=== PATIENT | male | born 1990 | race Caucasian/White ===

== ENCOUNTER 2016-06-20 20:14 | Emergency (ER) | payer OTHER ==
[2016-06-20] MEDS ORDERED: CLONIDINE HCL 0.1 MG TABLET PO ONE (21:27)
--- NOTE | 2016-06-20 21:28 | ERNOTE ---
Medical Problem HPI - General Chief Complaint: Nausea/Vomiting Time Seen by Provider: 06/20/16 21:17 Source: patient Exam Limitations: no limitations - Immun/Allergies/Home Medications Immunizations: IMMUNIZATION HX Immunizations Up to Date Yes History of Influenza Vaccine No Hx Pneumococcal Vaccination No Allergies/Adverse Reactions: Allergies No Known Allergies Allergy (Unverified 06/20/16 20:28) Home Medications: HOME MEDICATIONS Clonidine HCl [Catapres] 0.1 mg PO BID #30 tab 06/20/16 [Last Taken Unknown] - History of Present History Narrative: Pt states that he ate a [employer] today then vomited his food. He had some dry heaves after vomiting then vomited a small amount of bright blood Timing: resolved prior to arrival Severity: mild Review of Systems - Review of Systems Constitutional: Absent: recent illness, fatigue EYE: Present: no symptoms reported ENT: Present: no symptoms reported Respiratory: Absent: shortness of breath Cardiology: Absent: chest pain Gastrointestinal/Abdominal: Present: See HPI Genitourinary: Present: no symptoms reported Musculoskeletal: Present: no symptoms reported Skin: Present: no symptoms reported Neurological: Present: no symptoms reported Endocrine: Present: no symptoms reported Hematologic/Lymphatic: Present: no symptoms reported Psych: Present: no symptoms reported - Patient's Past Medical History Patient History - Medical: Anxiety, GERD Patient History - Cardiac/Respiratory: Hypertension Patient History - Cancer: Other Patient History - Surgical Procedures: Other, Hernia Repair - Social History Living Situations: home Abuse History: Hx of Substance Use Psych History: Hx of Anxiety Smoking Status: Current every day smoker Patient requests Smoking Cessation Consult: No Initiate information on Smoking Cessation: No Alcohol Use: heavy Drug Use: none - Immunizations Immunizations Up to Date: Yes Hx Pneumococcal Vaccination: No History of Influenza Vaccine: No Physical Exam - Physical Exam General Appearance: Present: wd/wn, alert, no apparent distress Eye Exam: Normal inspection: bilateral Ears, Nose, Throat: Present: normal ENT inspection Neck: Present: normal inspection, nontender Respiratory: Present: no respiratory distress, normal breath sounds, no accessory muscle use, chest nontender, lungs clear Cardiovascular/Chest: Present: regular rate, rhythm, no murmur, normal peripheral pulses Gastrointestinal/Abdominal: Present: normal bowel sounds, nontender, nondistended, soft, no organomegaly Back Exam: Present: normal inspection, normal range of motion Extremity Exam: Present: normal inspection Neurological Exam: Present: alert, oriented, normal mood/affect Skin Exam: Present: normal color, warm/dry ED Progress - Vital Signs Patient's Vital Signs:: I have reviewed the patient's vital signs. Vital Signs: Vital Signs 06/20/16 20:20 Temperature 37.1 C Pulse Rate 100 Respiratory 18 Rate Blood Pressure 163/109 O2 Sat by Pulse 98 Oximetry - Progress/Reassessment Chief Complaint: Nausea/Vomiting Departure - Departure Clinical Impression: Vomiting Qualifiers: Vomiting type: hematemesis Nausea presence: with nausea Qualified Code(s): K92.0 - Hematemesis Hypertension Qualifiers: Hypertension type: essential hypertension Qualified Code(s): I10 - Essential ( primary) hypertension Disposition: Home Follow Up Needed Condition: Good Instructions: Hypertension, [id number] Additional Instructions: establish with a primary care doctor as soon as possible. Cut down on your drinking slowly but consistently Prescriptions: Clonidine HCl [Catapres] 0.1 mg PO BID #30 tab
[2016-06-20] MEDS ORDERED: CLONIDINE HCL 0.1 MG TABLET ONE (21:29)
[2016-06-20 22:52] VITALS: BP 151/94
== END 2016-06-20 22:51 | disposition home or self-care (01) ==
LOC: ER 20:14
DX: K92.0 Hematemesis (principal); I10 Essential (primary) hypertension; F17.210 Nicotine dependence, cigarettes, uncomplicated

== ENCOUNTER 2017-04-22 16:33 | Observation (INO) | payer MEDICAID, OTHER ==
--- NOTE | 2017-04-22 17:29 | ERNOTE ---
Abdominal HPI - Narrative Date of Service: 04/22/17 - General Chief Complaint: Abdominal Pain Time Seen by Provider: 04/22/17 17:01 Source: patient - Immun/Allergies/Home Medications Immunizatons: IMMUNIZATION HX Immunizations Up to Date Yes History of Influenza Vaccine No Hx Pneumococcal Vaccination No Allergies/Adverse Reactions: Allergies No Known Allergies Allergy (Unverified 06/20/16 20:28) Home Medications: HOME MEDICATIONS Clonidine HCl [Catapres] 0.1 mg PO BID #30 tab 06/20/16 [Last Taken Unknown] - History of Present Illness Narrative: patient states he has abdominal pain. patient states he drink at lease a fifth of alcohol a day. patient states he has anxiety which makes his anxiety worse. patient states his pain to the RLQ. Patient is extremely anxious. Timing: constant, getting worse, intermittent Quality: aching, cramping Activities at Onset: none Associated Symptoms: Present: headache, nausea Prior Abdominal Problems: Present: none Review of Systems - Narrative Narrative: patient states he has slowed down on his drinking today but admits to drinking a lot over the last week. - Review of Systems Constitutional: Present: See HPI EYE: Present: no symptoms reported ENT: Present: no symptoms reported Respiratory: Present: no symptoms reported Cardiology: Present: no symptoms reported Gastrointestinal/Abdominal: Present: See HPI, abdominal pain, drinking less Genitourinary: Present: no symptoms reported Musculoskeletal: Present: no symptoms reported Skin: Present: no symptoms reported Neurological: Present: no symptoms reported Endocrine: Present: no symptoms reported Hematologic/Lymphatic: Present: no symptoms reported Psych: Present: See HPI, anxiety, depressed, emotional problems All Other Systems: All systems neg except as marked - Patient's Past Medical History Patient History - Medical: Alcohol Abuse, Anxiety, GERD Additional info: ETHO Patient History - Cardiac/Respiratory: Hypertension Patient History - Cancer: Other Patient History - Surgical Procedures: Other, Hernia Repair - Family History Father Family History - Medical: No pertinent hx Mother Family History - Medical: No pertinent hx - Social History Living Situations: significant other Abuse History: Hx of Substance Use Psych History: Hx of Anxiety Smoking Status: Current every day smoker Have you smoked in the past 12 months: Yes Do you dip or chew tobacco: No Alcohol Use: heavy Drug Use: marijuana - Immunizations Immunizations Up to Date: Yes Hx Pneumococcal Vaccination: No History of Influenza Vaccine: No Physical Exam - Physical Exam Narrative: patients had abdominal tenderness to right lower quadrent, rest of his physical exam was WNL. patient extremely anxious. General Appearance: Present: wd/wn, alert, anxious Head Exam: Present: normal inspection, no evidence of injury Eye Exam: Normal inspection: bilateral, PERRL: bilateral, EOMI: bilateral Ears, Nose, Throat: Present: normal ENT inspection, normal pharynx Neck: Present: normal inspection, nontender, supple, full range of motion Respiratory: Present: no respiratory distress, normal breath sounds, no accessory muscle use, chest nontender, lungs clear Cardiovascular/Chest: Present: regular rate, rhythm, no murmur, normal peripheral pulses Gastrointestinal/Abdominal: Present: normal bowel sounds, nondistended, soft, no organomegaly, tenderness Male Genitals Exam: Present: deferred Back Exam: Present: normal inspection, normal range of motion, no CVA tenderness , no vertebral tenderness Extremity Exam: Present: normal inspection, non-tender, normal range of motion, no edema Neurological Exam: Present: alert, oriented, normal mood/affect, no motor/ sensory deficits Skin Exam: Present: normal color, warm/dry Lymphatic Exam: Present: no adenopathy ED Progress - Results and Orders Patient's Lab Results:: I have reviewed the patient's lab results. Results and Orders: elevated WBC, Elevated Liver enzymes, CWIA score of 13 upon admission to ED - Vital Signs Patient's Vital Signs:: I have reviewed the patient's vital signs. Vital Signs: Vital Signs 04/22/17 16:38 Temperature 36.2 C L Pulse Rate 75 Respiratory 75 H Rate Blood Pressure 169/100 O2 Sat by Pulse 98 Oximetry - X-Ray X-Ray #1 X-Ray: abdomen Interpretation: Reviewed by me X-ray Comments: Technique: Supine and erect AP projections of the abdomen and pelvis were obtained. Findings: There are small amounts of gas identified within the bowel. I do not see evidence for gaseous dilatation of the bowel, air-fluid levels, or free air. The visualized lung bases are clear. I am not convinced of calcified radiodensities overlying the kidneys. IMPRESSION: 1. NONSPECIFIC BOWEL GAS PATTERN Electronically signed by Vivek Kiran M.D.. Vivek Kiran MD - CT/Ultrasound CT/Ultrasound Narrative: Findings: There is diffuse fatty infiltration of the liver. Liver is enlarged measuring over 20 cm. Gallbladder appears within normal limits. Spleen is prominent but within normal limits. Adrenal glands appear within normal limits. Pancreas appears within normal limits. Kidneys appear within normal limits. There is no bowel obstruction or free air. Appendix appears within normal limits. There is no free fluid or ascites. There are no focal abnormal inflammatory changes identified. Findings conveyed to emergency room personnel at 2101 hours by [facility]. IMPRESSION: NONSPECIFIC HEPATOMEGALY WITH FATTY INFILTRATION OF THE LIVER. NO ACUTE ABDOMINAL PATHOLOGY OTHERWISE IDENTIFIED. Electronically signed by Ash Johnson M.D.. Ash Johnson MD Dict: 04/23/17 1345 Typed: 04/23/17 1345/ ELICEO NAD - Progress/Reassessment Chief Complaint: Abdominal Pain Progress:: Improved Plan - Plan Plan: The patient requested to be assisted with detox from alcohol. Patient agrees to admission to help him. Departure Clinical Impression: Alcohol withdrawal syndrome Qualifiers: Complication of substance-induced condition: with unspecified complication Qualified Code(s): F10.239 - Alcohol dependence with withdrawal, unspecified - Departure Disposition: [facility] Condition: Stable
[2017-04-22] MEDS ORDERED: NORMAL SALINE 1,000 ML IV ONE (17:31)
[2017-04-22 17:54] LABS: Hematocrit 48.3 % (42.0-52.0); Hemoglobin 17.4 gm/dL (13.5-18.0); Mean Cell Volume 93.1 fl (78-100); Mean Corpuscular Hemoglobin 33.5 pg (27-31); Mean Platelet Volume 8.8 fl (6.0-9.5); Neutrophil # 11.2 K/mm3 (1.3-6.0); Neutrophil % 73.7 % (42-75.0); Platelet Count 257 K/mm3 (150-450); Red Blood Count 5.19 M/mm3 (4.7-6.0); Red Cell Distribution Width 13.1 % (11.5-14.0); White Blood Count 15.1 K/mm3 (4.0-10.5)
[2017-04-22 18:07] LABS: Albumin * 4.5 gm/dl (3.4-5.0); Anion Gap 14.1 mmol/L (6.8-13.8); BUN/Creatinine Ratio 2.1 (9.0-21.6); Bilirubin, Total 1.1 mg/dL (0.0-1.1); Ca. Corrected For Albumin 8.9 mg/dL (8.4-10.2); Calcium * 9.6 mg/dL (7.9-10.9); Carbon Dioxide 29.1 mmol/L (24-32.6); Potassium 3.2 mmol/L (3.4-4.6); Total Protein 9.7 gm/dL (6.2-8.2)
[2017-04-22 18:08] LABS: INR 1.1 INR (0.90-1.10); Partial Thrombolplastin Time 26.6 Seconds (24-32)
[2017-04-22] MEDS ORDERED: DIATRIZOATE MEGLUMINE, SODIUM 30 ML BTL PO ONE (18:25)
[2017-04-22 18:44] LABS: Cocaine Ur Negative (NEGATIVE); Urine Barbiturate Negative (NEGATIVE); Urine Benzodiazepines Negative (NEGATIVE); Urine Opiates Negative (NEGATIVE); Urine PCP Negative (NEGATIVE)
[2017-04-22 18:45] LABS: Urine THC Positive (NEGATIVE)
[2017-04-22 18:46] LABS: Urine Appearance Clear; Urine Bacteria None Seen; Urine Bilirubin Negative (NEGATIVE); Urine Blood Negative /ul (NEGATIVE); Urine Color Dark Yellow; Urine Ketone Negative (NEGATIVE); Urine Nitrite Negative (NEGATIVE); Urine Protein Negative (NEGATIVE); Urine RBC None Seen /hpf (0-5); Urine Specific Gravity 1.015 SP.GR. (1.005-1.030); Urine Urobilinogen Normal (NORMAL); Urine WBC None Seen /hpf (0-5)
[2017-04-22] MEDS ORDERED: LORazepam 2 MG/ML DISP.SYRIN IV PRN (21:22)
[2017-04-22] MEDS ORDERED: LORazepam 2 MG/ML DISP.SYRIN IV ONE (21:33)
[2017-04-23] MEDS ORDERED: POTASSIUM CHLORIDE 20 MEQ TABLET.SA PO ONE (00:23)
[2017-04-23] MEDS ORDERED: LORazepam 2 MG/ML DISP.SYRIN IV PRN ×3 (00:24)
[2017-04-23] MEDS: MULTIVIT INFUSN,ADULT 4,VIT K 10 ML, THIAMINE HCL 100 MG in NORMAL SALINE 1,000 ML IV SCH ×2 (00:31→22:34)
--- NOTE | 2017-04-23 00:55 | HP ---
Chief Complaint - Chief Complaint Date of Service: 04/23/17 Time of Service: 00:30 Chief Complaint: Abdominal pain, Anxiety, wanting to detox from Alcohol use. Source of HPI- Pt; reliable, ERP provider report. History of Present Illness: Mr. Rosas is a 26-yr-old WM with a PMH of Anxiety and HTN who presented to the ED with complaints of Abdominal pain. He admits that he drinks heavily and had just started drinking Whiskey when he suddenly developed severe mid-epigastric pain. His significant other brought him to the hospital. With his abdominal pain , he denied the associated symptoms of fevers, chills, n/v & diarrhea. He admits that he has alcoholism issues and has attempted to stop many times, but when he tries to skip a drink, he gets very bad anxiety, tremors and palpitations, but denies seizures. He then ends up needing to drink more. He states that he drinks at least a fifth of Vodka per day and has done so for about 1-2 yrs. He states that he drinks mostly to curb his Anxiety. He denies any suicidal ideation. He states he has never gone thorough any Etoh detox treatment. He states that he is desperate to get help with his Alcoholism and and is voluntarily wanting to go through the detox treatment here. At the ED work-up involved abdominal CT which did not have any acute findings. WBC was elevated at 15,000 but non- specific. K level was 3.2. He had ROSALINA of 46. Urine toxicology was positive for Marijuana. Pt will be admitted for ETOH Detox. treatment and will need monitored for severe signs of withdrawal and will consult Psychiatry. - Patient's Past Medical History Patient History - Medical: Alcohol Abuse, Anxiety, GERD Patient History - Cardiac/Respiratory: Hypertension Patient History - Cancer: Other Patient History - Surgical Procedures: Other, Hernia Repair Patient History - Other: None - Family History Father Family History - Medical: No pertinent hx Mother Family History - Medical: No pertinent hx - Social History Living Situations: significant other Abuse History: Hx of Substance Use Psych History: Hx of Anxiety Smoking Status: Current every day smoker Have you smoked in the past 12 months: Yes Do you dip or chew tobacco: No Patient requests Smoking Cessation Consult: No Initiate information on Smoking Cessation: No Alcohol Use: heavy Drug Use: marijuana - Immunizations Immunizations Up to Date: Yes Hx Pneumococcal Vaccination: No History of Influenza Vaccine: No Review Of Systems (GEN) - Review of Systems Generalized/Overall Review: Absent: Weakness, Chills, Fever, Malaise EENTM: Absent: Eye Pain, Blurred Vision, Tearing Respiratory: Absent: Cough, Shortness of Breath Cardiac: Absent: Chest Pain, Edema, Palpitations, Syncope Abdominal: Absent: Nausea, Vomiting, Hematemesis, Constipation Genitourinary: Absent: Burning, Itching, Urgency, Frequency, Hesitancy Musculoskeletal: Absent: Joint Pain, Back Pain, Joint Swelling Neurological: Absent: Headache, Anxiety, Depressed Skin: Absent: Dryness, Lesions, Lumps Endocrine: Absent: Intolerance to Cold, Increased Hunger, Flushing Misc: All systems neg except as marked Allergies/Adverse Reactions: Allergies Allergy/AdvReac Type Severity Reaction Status Date / Time No Known Allergies Allergy Unverified 06/20/16 20:28 Home Medications: HOME MEDICATIONS Clonidine HCl [Catapres] 0.1 mg PO BID #30 tab 06/20/16 [Last Taken Unknown] Exam - Exam Vital Signs: Vital Signs - Last Taken Temp 36.1 C L 04/22/17 23:11 Pulse 65 04/22/17 23:11 Resp 18 04/22/17 23:11 BP 159/93 04/22/17 23:11 Pulse Ox 98 04/22/17 23:11 Constitutional: Present: Alert, Oriented x3, Cooperative, No distress ENT Exam: Present: normal ENT inspection Eye Exam: bilateral eye: normal inspection, PERRL Neck: Present: non-tender, full range of motion, supple Back Exam: Present: normal inspection, no CVA tenderness Breasts: Present: Exam deferred Respiratory: Present: lungs clear Cardiovascular/Chest: Present: normal peripheral pulses, regular rate, rhythm, no chest tenderness Abdomen: Present: Normal bowel sounds, soft, nontender /Rectal: Present: Exam deferred Skin Exam: Present: warm/dry, no cyanosis Lymphatic: Present: no adenopathy Neurologic: Present: alert, normal mood/affect, oriented x 3 Appearance: Present: appropriate appearance, appropriate insight Eye contact: Present: cooperative, good eye contact, normal speech Thoughts: Present: normal thought pattern, no apparent hallucination Diagnostic Studies: Laboratory Results WBC 15.1 K/mm3 (4.0-10.5) H 04/22/17 17:48 RBC 5.19 M/mm3 (4.7-6.0) 04/22/17 17:48 Hgb 17.4 gm/dL (13.5-18.0) 04/22/17 17:48 Hct 48.3 % (42.0-52.0) 04/22/17 17:48 MCV 93.1 fl (78-100) 04/22/17 17:48 MCH 33.5 pg (27-31) H 04/22/17 17:48 MCHC 36.0 g/dl (32-36) 04/22/17 17:48 RDW 13.1 % (11.5-14.0) 04/22/17 17:48 Plt Count 257 K/mm3 (150-450) 04/22/17 17:48 MPV 8.8 fl (6.0-9.5) 04/22/17 17:48 Immature Gran % (Auto) 0.40 % (0.001-0.429) 04/22/17 17:48 Immature Gran # (Auto) 0.06 K/mm3 (0.000-0.0310) H 04/22/17 17:48 Neutrophils % 73.7 % (42-75.0) 04/22/17 17:48 Lymphocytes % 19.3 % (20-51) L 04/22/17 17:48 Monocytes % 5.2 % (0.0-9) 04/22/17 17:48 Eosinophils % 0.5 % (0.0-3.0) 04/22/17 17:48 Basophils % 0.9 % (0.0-1.0) 04/22/17 17:48 Nucleated RBC % 0.0 k/mm3 (0-1) 04/22/17 17:48 Neutrophils # 11.2 K/mm3 (1.3-6.0) H 04/22/17 17:48 Lymphocytes # 2.9 k/mm3 (1.5-3.5) 04/22/17 17:48 Monocytes # 0.8 k/mm3 (0.0-1.0) 04/22/17 17:48 Eosinophils # 0.1 k/mm3 (0.0-0.7) 04/22/17 17:48 Absolute Basophils 0.1 k/mm3 (0.0-0.1) 04/22/17 17:48 PT 11.0 Seconds (9.0-11.0) 04/22/17 17:48 INR (Anticoag Therapy) 1.10 INR (0.90-1.10) 04/22/17 17:48 PTT (Jong) 26.6 Seconds (24-32) 04/22/17 17:48 Sodium 136 mmol/L (132-142) 04/22/17 17:48 Plasma Sodium 136 mmol/L (130-142) 04/22/17 17:48 Potassium 3.2 mmol/L (3.4-4.6) L 04/22/17 17:48 Chloride 96 mmol/L (97-106) L 04/22/17 17:48 Carbon Dioxide 29.1 mmol/L (24-32.6) 04/22/17 17:48 Anion Gap 14.1 mmol/L (6.8-13.8) H 04/22/17 17:48 BUN 2 mg/dL (6-23) L 04/22/17 17:48 Creatinine 0.97 mg/dL (0.4-1.4) 04/22/17 17:48 Est GFR (Non-Af Amer) 99 mL/min (60-130) 04/22/17 17:48 BUN/Creatinine Ratio 2.1 (9.0-21.6) L 04/22/17 17:48 Random Glucose 113 mg/dL (70-110) H 04/22/17 17:48 Calcium 9.6 mg/dL (7.9-10.9) 04/22/17 17:48 Calcium Adj for Albumin 8.9 mg/dL (8.4-10.2) 04/22/17 17:48 Total Bilirubin 1.1 mg/dL (0.0-1.1) 04/22/17 17:48 AST 243 U/L (0-48) H 04/22/17 17:48 ALT 131 U/L (19-67) H 04/22/17 17:48 Alkaline Phosphatase 151 U/L (50-170) 04/22/17 17:48 Ammonia Less than 17.0 mcmol/L (11-35) 04/22/17 17:48 Total Protein 9.7 gm/dL (6.2-8.2) H 04/22/17 17:48 Albumin 4.5 gm/dl (3.4-5.0) 04/22/17 17:48 Amylase 37 U/L (25-115) 04/22/17 17:48 Lipase 134 U/L (73-393) 04/22/17 17:48 Urine Color Dark yellow 04/22/17 18:30 Urine Appearance Clear 04/22/17 18:30 Urine pH 6.0 pH (5.0-7.0) 04/22/17 18:30 Ur Specific [place] 1.015 SP.GR. (1.005-1.030) 04/22/17 18:30 Urine Protein Negative mg/dL (NEGATIVE) 04/22/17 18:30 Urine Glucose (UA) Negative mg/dL (NEGATIVE) 04/22/17 18:30 Urine Ketones Negative mg/dL (NEGATIVE) 04/22/17 18:30 Urine Blood Negative /ul (NEGATIVE) 04/22/17 18:30 Urine Nitrate Negative (NEGATIVE) 04/22/17 18:30 Urine Bilirubin Negative mg/dl (NEGATIVE) 04/22/17 18:30 Urine Urobilinogen Normal EU/dl (NORMAL) 04/22/17 18:30 Ur Leukocyte Esterase Negative /ul (NEGATIVE) 04/22/17 18:30 Urine RBC None seen /hpf (0-5) 04/22/17 18:30 Urine WBC None seen /hpf (0-5) 04/22/17 18:30 Ur Epithelial Cells 0-5 /hpf (0-5) 04/22/17 18:30 Urine Bacteria None seen (NONE) 04/22/17 18:30 Urine Culture Comments No culture indicated 04/22/17 18:30 Urine Opiates Screen Negative (NEGATIVE) 04/22/17 18:30 Barbiturate Screen Negative (NEGATIVE) 04/22/17 18:30 Ur Phencyclidine Scrn Negative (NEGATIVE) 04/22/17 18:30 Urine Amphetamine Negative (NEGATIVE) 04/22/17 18:30 U Benzodiazepines Scrn Negative (NEGATIVE) 04/22/17 18:30 Urine Cocaine Screen Negative (NEGATIVE) 04/22/17 18:30 Urine Marijuana (THC) Positive (NEGATIVE) H 04/22/17 18:30 Ethyl Alcohol 46.0 mg/dL (0.0-10.0) H 04/22/17 17:48 Assessment/Plan - Assessment/Plan (1) Alcohol use disorder Assessment: Pt will benefit from intergrated treatment with Psychiatry. Will consult Psychiatry. Problem: Acute (2) Alcohol withdrawal syndrome Assessment: Pt has the interest in going through the ETOH detoxification treatment. He presented with mild symptoms of withdrawal: Anxiety and restlessness. Will provide supportive cares with hydration, electrolytes correction, supplements including Folic acid daily- to prevent macrocytic Anemia, Thiamine -to prevent Wernicke-Korsakoff Syndrome. Will use CIWA-ar scale to assess for initial severity of withdrawal & to monitor treatment. Symptoms can last up to 7 days but will depend on severity of his withdrawal. He may need inpatient for: CIWA > 15-20, withdrawal seizures, elevated AST. Will place on telemetry to monitor for arrhythmias that can result from electrolyte imbalance. Problem: Acute (3) Hypokalemia Assessment: Will give oral K 40 meQ. Laboratory Tests 04/22/17 17:48 Potassium 3.2 L Problem: Acute (4) Anxiety Problem: Chronic (5) HTN (hypertension) Problem: Chronic
[2017-04-23] MEDS ORDERED: THIAMINE HCL 100 MG/ML VIAL IM STA (01:52)
[2017-04-23] MEDS ORDERED: FOLIC ACID 1 MG TABLET PO STA (01:58)
[2017-04-23 06:14] LABS: Hematocrit 43.8 % (42.0-52.0); Hemoglobin 15.7 gm/dL (13.5-18.0); Mean Cell Volume 94.8 fl (78-100); Mean Corpuscular Hgb Conc 35.8 g/dl (32-36); Mean Platelet Volume 8.8 fl (6.0-9.5); Neutrophil # 7.5 K/mm3 (1.3-6.0); Neutrophil % 61.4 % (42-75.0); Platelet Count 196 K/mm3 (150-450); Red Blood Count 4.62 M/mm3 (4.7-6.0); Red Cell Distribution Width 13.2 % (11.5-14.0); White Blood Count 12.2 K/mm3 (4.0-10.5)
[2017-04-23 06:31] LABS: Albumin * 3.5 gm/dl (3.4-5.0); Anion Gap 12.1 mmol/L (6.8-13.8); BUN/Creatinine Ratio 4.6 (9.0-21.6); Bilirubin, Total 1.6 mg/dL (0.0-1.1); Ca. Corrected For Albumin 9.2 mg/dL (8.4-10.2); Calcium * 9.1 mg/dL (7.9-10.9); Carbon Dioxide 27.7 mmol/L (24-32.6); Potassium 3.8 mmol/L (3.4-4.6); Total Protein 7.8 gm/dL (6.2-8.2)
[2017-04-23] MEDS: MULTIVITAMINS 1 CAP CAPSULE PO SCH (08:27)
[2017-04-23] MEDS: THIAMINE HCL 100 MG TABLET PO SCH (08:27)
[2017-04-23] MEDS: FOLIC ACID 1 MG TABLET PO SCH (08:27)
[2017-04-23] MEDS: chlordiazePOXIDE HCL 25 MG CAPSULE PO SCH ×4 (08:30→20:06)
[2017-04-23] MEDS ORDERED: ONDANSETRON HCL/PF 2 MG/ML VIAL IV PRN (11:27)
[2017-04-23] MEDS ORDERED: ACETAMINOPHEN 500 MG TABLET PO PRN (11:28)
[2017-04-23] MEDS: PANTOPRAZOLE SODIUM 40 MG TABLET.EC PO SCH (12:07)
[2017-04-23] MEDS: CLONIDINE HCL 0.1 MG TABLET PO SCH (20:03)
[2017-04-24 06:30] LABS: Albumin * 3.3 gm/dl (3.4-5.0); Anion Gap 11.6 mmol/L (6.8-13.8); Bilirubin, Total 1.3 mg/dL (0.0-1.1); Ca. Corrected For Albumin 9.2 mg/dL (8.4-10.2); Carbon Dioxide 26.8 mmol/L (24-32.6); Potassium 3.4 mmol/L (3.4-4.6); Total Protein 7.5 gm/dL (6.2-8.2)
[2017-04-24 06:41] LABS: BUN/Creatinine Ratio 8.3 (9.0-21.6)
[2017-04-24] MEDS: PANTOPRAZOLE SODIUM 40 MG TABLET.EC PO SCH (06:59)
[2017-04-24] MEDS: FOLIC ACID 1 MG TABLET PO SCH (08:30)
[2017-04-24] MEDS: CLONIDINE HCL 0.1 MG TABLET PO SCH (08:30)
[2017-04-24] MEDS: MULTIVITAMINS 1 CAP CAPSULE PO SCH (08:31)
[2017-04-24] MEDS: THIAMINE HCL 100 MG TABLET PO SCH (08:31)
[2017-04-24] MEDS: chlordiazePOXIDE HCL 25 MG CAPSULE PO SCH (08:34)
--- NOTE | 2017-04-24 08:47 | DS ---
(1) Alcohol use disorder Problem: Acute (2) Alcohol withdrawal syndrome Problem: Acute Qualifiers: Complication of substance-induced condition: with unspecified complication Qualified Code(s): F10.239 - Alcohol dependence with withdrawal, unspecified (3) Hypokalemia Problem: Resolved (4) Anxiety Problem: Chronic (5) HTN (hypertension) Problem: Chronic Procedures Performed: none Discharge Disposition: Home self care Disposition: Home self-care Condition: Stable Discharge Activity: Activity as tolerated Discharge Diet: General/regular food, Low salt Additional Patient Instructions (free text): Please make an appointment with Rakel Pulido for alcohol dependence/anxiety. May follow up with me x 1 but needs to establish with a doctor for PCP. Prescriptions (Any new or edited meds): Folic Acid 1 mg PO DAILY #30 tablet Gabapentin 300 mg PO DAILY #10 capsule Thiamine HCl [Vitamin B-1] 100 mg PO DAILY #30 tablet Complete Home Medications List: Complete Home Medication List: Clonidine HCl [Catapres] 0.1 mg PO BID #30 tab 06/20/16 Folic Acid 1 mg PO DAILY #30 tablet 04/24/17 Gabapentin 300 mg PO DAILY #10 capsule 04/24/17 Thiamine HCl [Vitamin B-1] 100 mg PO DAILY #30 tablet 04/24/17
[2017-04-25 08:28] VITALS: BP 147/63
== END 2017-04-24 11:00 | disposition home or self-care (01) ==
LOC: ER 16:33 → MS 22:23
PROVIDERS: ADMIT Nurse Practitioner; ATTEND Internal Medicine
DX: F10.10 Alcohol abuse, uncomplicated (principal); F10.239 Alcohol dependence with withdrawal, unspecified; E87.6 Hypokalemia; F41.8 Other specified anxiety disorders; I10 Essential (primary) hypertension; K76.0 Fatty (change of) liver, not elsewhere classified; Z68.32 Body mass index [BMI] 32.0-32.9, adult
CPT/HCPCS: 36415; 74019; 74177; 80053; 80307; 81001; 82140; 82150; 83690; 85025; 85610; 85730; 96372; 96374; 96375; 99284; G0378; G0481